=== PATIENT | female | born 1945 | race American Indian/Alaskan Native ===

== ENCOUNTER 2024-01-27 11:17 | Outpatient (RCR) | payer MEDICARE, MEDICAID, SELFPAY | END 2024-02-20 23:59 | disposition home or self-care (01) | LOC: SCTC 11:17 | PROVIDERS: PCP Nurse Practitioner Family; Referring Provider Nurse Practitioner Family; Visit Provider Nurse Practitioner Family | DX: D50.9 Iron deficiency anemia, unspecified (principal); K57.90 Diverticulosis of intestine, part unspecified, without perforation or abscess without bleeding; R13.10 Dysphagia, unspecified; Z88.8 Allergy status to other drugs, medicaments and biological substances; I25.10 Atherosclerotic heart disease of native coronary artery without angina pectoris; I10 Essential (primary) hypertension | CPT/HCPCS: 99212; G0463 ==

== ENCOUNTER → 2024-03-08 | Outpatient (CLI) | payer MEDICARE, MEDICAID, SELFPAY ==
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
== END | disposition home or self-care (01) ==
PROVIDERS: PCP Nurse Practitioner Family; Referring Provider Nurse Practitioner Family; Visit Provider Nurse Practitioner Family
DX: S69.91XA Unspecified injury of right wrist, hand and finger(s), initial encounter (principal); S09.90XA Unspecified injury of head, initial encounter; S49.92XA Unspecified injury of left shoulder and upper arm, initial encounter; S19.9XXA Unspecified injury of neck, initial encounter; V89.2XXA Person injured in unspecified motor-vehicle accident, traffic, initial encounter
CPT/HCPCS: 70450; 72050; 73030; 73110

== ENCOUNTER → 2024-03-29 | Outpatient (CLI) | payer MEDICARE, SELFPAY ==
[2024-03-29 17:41] LABS: Basophils % (Auto) 0 % (0-2.5); Eosinophils # (Auto) 0.1 Thou/mm3 (0.0-0.5); Eosinophils % (Auto) 1 % (0-10); Hematocrit 37.1 % (36.0-46.0); Hemoglobin 11.6 g/dL (12.0-16.0); Immature Granulocytes % (Auto) 0 % (0-0); Immature Granulocytes Auto 0.03 Thou/mm3 (0.00-0.00); Lymphocytes # (Auto) 2.4 Thou/mm3 (1.0-4.8); Lymphocytes % (Auto) 28 % (10-50); Mean Corpuscular HGB Conc 31.3 g/dl (31.0-37.0); Mean Corpuscular Hemoglobin 26.4 pg (25.0-35.0); Mean Corpuscular Volume 84 fL (80-100); Monocytes # (Auto) 0.4 Thou/mm3 (0.0-0.8); Monocytes % (Auto) 4 % (0-12); Neutrophils # (Auto) 5.5 Thou/mm3 (1.8-7.7); Neutrophils % (Auto) 66 % (37-80); Nucleated Red Blood Cell % 0 /100 WBC (0); Platelet Count 219 Thou/mm3 (140-440); RDW Standard Deviation 50.3 fL (36.4-46.3); Reticulocyte % (Auto) 1.4 % (0.5-1.5); Reticulocyte Absolute Auto 62.5 Biln/L (25.0-75.0); Reticulocyte Hgb Content 29.7 pg (28.0-35.0); White Blood Count 8.4 Thou/mm3 (3.6-11.0)
[2024-03-29 17:55] LABS: Alanine Aminotransferase 13 U/L (10-49); Albumin, Serum 4.6 gm/dL (3.4-4.8); Albumin/Globulin Ratio 1.8 (1.2-2.2); Alkaline Phosphatase 117 U/L (46-116); Anion Gap 8 (7-16); Aspartate Amino Transferase 12 U/L (0-34); BUN/Creatinine Ratio 21 Ratio (12-20); Bilirubin,Total 0.3 mg/dL (0.3-1.2); Blood Urea Nitrogen 21 mg/dL (9-23); Calcium 9.9 mg/dL (8.3-10.6); Calcium (Corrected) 9.9 mg/dL (8.5-10.1); Carbon Dioxide 26.8 mMol/L (20.0-31.0); Chloride 108 mMol/L (98-107); Globulin 2.5 gm/dL (2.3-3.5); Glucose 105 mg/dL (74-106); Osmolality,Calculated 287 (275-295); Potassium 4.9 mMol/L (3.4-5.1); Sodium 143 mMol/L (136-145); Total Protein 7.1 gm/dL (5.7-8.2); eGFR 58 See Note
[2024-03-29 17:59] LABS: Folate 17.43 ng/mL (>5.38); Vitamin B12 602 pg/mL (211-911)
[2024-03-30 02:28] LABS: Ferritin 21 ng/mL (7.3-270.7); Iron 44 mcg/dL (50-170); Percent Iron Saturation 13 % (20-55); Total Iron Binding Capacity 327 mcg/dL (250-425); Unsaturated Iron Binding 283 (225-295)
== END | disposition home or self-care (01) ==
PROVIDERS: PCP Nurse Practitioner Family; Referring Provider Nurse Practitioner Family; Visit Provider Nurse Practitioner Family
DX: D50.9 Iron deficiency anemia, unspecified (principal)
CPT/HCPCS: 36415; 80053; 82607; 82728; 82746; 83540; 83550; 85025; 85046

== ENCOUNTER 2024-04-04 13:33 | Outpatient (RCR) | payer MEDICARE, SELFPAY | END 2024-04-22 23:59 | disposition home or self-care (01) | LOC: SCTC 13:33 | PROVIDERS: PCP Nurse Practitioner Family; Referring Provider Nurse Practitioner Family; Visit Provider Nurse Practitioner Family | DX: D50.9 Iron deficiency anemia, unspecified (principal); K57.90 Diverticulosis of intestine, part unspecified, without perforation or abscess without bleeding; K21.9 Gastro-esophageal reflux disease without esophagitis; K59.09 Other constipation; R11.0 Nausea | CPT/HCPCS: 96365; 96375; 99212; J2919; J3490; J7050; Q0138; G0463 ==

== ENCOUNTER → 2024-05-03 | Outpatient (CLI) | payer MEDICARE, MEDICAID, SELFPAY ==
[2024-05-03 11:05] LABS: Basophils % (Auto) 0 % (0-2.5); Eosinophils # (Auto) 0.1 Thou/mm3 (0.0-0.5); Eosinophils % (Auto) 1 % (0-10); Hematocrit 34.8 % (36.0-46.0); Hemoglobin 11.1 g/dL (12.0-16.0); Immature Granulocytes % (Auto) 1 % (0-0); Immature Granulocytes Auto 0.09 Thou/mm3 (0.00-0.00); Lymphocytes # (Auto) 1.5 Thou/mm3 (1.0-4.8); Lymphocytes % (Auto) 15 % (10-50); Mean Corpuscular HGB Conc 31.9 g/dl (31.0-37.0); Mean Corpuscular Hemoglobin 26.6 pg (25.0-35.0); Mean Corpuscular Volume 84 fL (80-100); Monocytes # (Auto) 0.5 Thou/mm3 (0.0-0.8); Monocytes % (Auto) 5 % (0-12); Neutrophils # (Auto) 8.2 Thou/mm3 (1.8-7.7); Neutrophils % (Auto) 78 % (37-80); Nucleated Red Blood Cell % 0 /100 WBC (0); Platelet Count 232 Thou/mm3 (140-440); RDW Standard Deviation 48.5 fL (36.4-46.3); Red Blood Count 4.17 Miln/mm3 (4.00-5.20); White Blood Count 10.5 Thou/mm3 (3.6-11.0)
[2024-05-03 11:14] LABS: Glucose Estimated Average 229 mg/dL (80-131); Hemoglobin A1C 9.6 % Hgb (4.8-6.0)
[2024-05-03 11:16] LABS: Collection Type, Urine Clean Catch
[2024-05-03 11:27] LABS: Vitamin D 25 Hydroxy Total 11.6 ng/mL (7.3-40.2)
[2024-05-03 11:37] LABS: Alanine Aminotransferase 9 U/L (10-49); Albumin, Serum 4.1 gm/dL (3.4-4.8); Alkaline Phosphatase 125 U/L (46-116); Anion Gap 4 (7-16); Aspartate Amino Transferase < 8 U/L (0-34); BUN/Creatinine Ratio 16 Ratio (12-20); Bilirubin,Total 0.5 mg/dL (0.3-1.2); Blood Urea Nitrogen 18 mg/dL (9-23); Calcium 9.5 mg/dL (8.3-10.6); Calcium (Corrected) 9.5 mg/dL (8.5-10.1); Carbon Dioxide 28.5 mMol/L (20.0-31.0); Cardiac Risk Estimate 4.9 RATIO (3.7-5.6); Chloride 105 mMol/L (98-107); Cholesterol 151 mg/dL (132-200); Creatinine (Component) 1.1 mg/dL (0.6-1.3); Globulin 2.1 gm/dL (2.3-3.5); Glucose 301 mg/dL (74-106); HDL Cholesterol 31 mg/dL (40-60); LDL Cholesterol,Calculated 81 mg/dL (0-130); Osmolality,Calculated 286 (275-295); Potassium 4.7 mMol/L (3.4-5.1); Sodium 137 mMol/L (136-145); Thyroid Stimulating Hormone 0.96 uIU/mL (0.55-4.78); Total Protein 6.2 gm/dL (5.7-8.2); Triglycerides 193 mg/dL (30-150); eGFR 52 See Note
[2024-05-03 11:55] LABS: Creatinine MALB Rnd Ur 239 mg/dL (30-125); Microalbumin Creat Ratio 7 mg/gCrea (<30); Microalbumin, Random Urine 17 mg/L (0-300)
[2024-05-03 11:57] LABS: Bacteria,Urine Rare; Bilirubin,Urine Negative (Negative); Blood,Urine Trace (Negative); Clarity,Urine Clear (Clear/Hazy); Color,Urine Yellow (Lt Yel-Yel); Glucose, Urine Trace (Negative); Ketones,Urine Negative (Negative); Leukocyte Esterase,Urine Negative (Negative); Nitrite,Urine Negative (Negative); Protein,Urine Trace (Neg - Trace); RBC,Urine 1 /hpf (0-3); Specific Gravity,Urine 1.027 (1.001-1.035); Squamous Epithelial Cell,Urine 2 /hpf (0-5); Urobilinogen,Urine Negative mg/dL (0.0-1.0); WBC,Urine 1 /hpf (0-5)
== END | disposition home or self-care (01) ==
LOC: COPL 10:20
PROVIDERS: PCP Nurse Practitioner Family; Referring Provider Internal Medicine; Visit Provider Internal Medicine
DX: I12.9 Hypertensive chronic kidney disease with stage 1 through stage 4 chronic kidney disease, or unspecified chronic kidney disease (principal); E11.22 Type 2 diabetes mellitus with diabetic chronic kidney disease; N18.30 Chronic kidney disease, stage 3 unspecified
CPT/HCPCS: 36415; 80053; 80061; 81001; 82043; 82306; 82570; 83036; 84443; 85025

== ENCOUNTER → 2024-05-26 | Outpatient (CLI) | payer MEDICARE, MEDICAID, SELFPAY ==
--- NOTE | 2024-05-26 16:06 | XR_ITS ---
Examination: Abdomen AP single view Technique: AP portable supine abdomen, single view Exam date and time: May 26, 2024 1608 hrs. Indications: Abdominal pain beginning 2 months ago. Findings: Moderate stool throughout the colon No obstruction No free air Intact osseous structures Impression: Moderate stool throughout the colon
[2024-05-26 17:21] LABS: Collection Type, Urine Clean Catch
[2024-05-26 17:34] LABS: Basophils % (Auto) 0 % (0-2.5); Eosinophils # (Auto) 0.1 Thou/mm3 (0.0-0.5); Eosinophils % (Auto) 1 % (0-10); Hematocrit 31.6 % (36.0-46.0); Hemoglobin 10.1 g/dL (12.0-16.0); Immature Granulocytes % (Auto) 1 % (0-0); Immature Granulocytes Auto 0.04 Thou/mm3 (0.00-0.00); Lymphocytes # (Auto) 1.8 Thou/mm3 (1.0-4.8); Lymphocytes % (Auto) 23 % (10-50); Mean Corpuscular Hemoglobin 26.2 pg (25.0-35.0); Mean Corpuscular Volume 82 fL (80-100); Monocytes # (Auto) 0.4 Thou/mm3 (0.0-0.8); Monocytes % (Auto) 5 % (0-12); Neutrophils # (Auto) 5.8 Thou/mm3 (1.8-7.7); Neutrophils % (Auto) 71 % (37-80); Nucleated Red Blood Cell % 0 /100 WBC (0); Platelet Count 251 Thou/mm3 (140-440); RDW Standard Deviation 47.1 fL (36.4-46.3); Red Blood Count 3.85 Miln/mm3 (4.00-5.20); White Blood Count 8.1 Thou/mm3 (3.6-11.0)
[2024-05-26 17:47] LABS: Bilirubin,Urine Negative (Negative); Blood,Urine 1+ (Negative); Clarity,Urine Clear (Clear/Hazy); Color,Urine Lt-Yellow (Lt Yel-Yel); Glucose, Urine 4+ (Negative); Ketones,Urine Negative (Negative); Leukocyte Esterase,Urine Negative (Negative); Nitrite,Urine Negative (Negative); Protein,Urine Negative (Neg - Trace); RBC,Urine 8 /hpf (0-3); Specific Gravity,Urine 1.032 (1.001-1.035); Squamous Epithelial Cell,Urine 2 /hpf (0-5); Urobilinogen,Urine Negative mg/dL (0.0-1.0); WBC,Urine 1 /hpf (0-5)
[2024-05-26 18:31] LABS: Alanine Aminotransferase 10 U/L (10-49); Albumin, Serum 3.8 gm/dL (3.4-4.8); Albumin/Globulin Ratio 1.7 (1.2-2.2); Alkaline Phosphatase 129 U/L (46-116); Amylase 50 U/L (30-118); Anion Gap 7 (7-16); Aspartate Amino Transferase < 8 U/L (0-34); BUN/Creatinine Ratio 14 Ratio (12-20); Bilirubin,Total 0.3 mg/dL (0.3-1.2); Blood Urea Nitrogen 17 mg/dL (9-23); Calcium 9.3 mg/dL (8.3-10.6); Calcium (Corrected) 9.5 mg/dL (8.5-10.1); Carbon Dioxide 27.4 mMol/L (20.0-31.0); Chloride 103 mMol/L (98-107); Creatinine (Component) 1.2 mg/dL (0.6-1.3); Globulin 2.3 gm/dL (2.3-3.5); Glucose 398 mg/dL (74-106); Lipase 31 U/L (12-53); Osmolality,Calculated 292 (275-295); Potassium 4.4 mMol/L (3.4-5.1); Sodium 137 mMol/L (136-145); Total Protein 6.1 gm/dL (5.7-8.2); eGFR 47 See Note
== END | disposition home or self-care (01) ==
LOC: CDIM 16:24 → COPL 17:06
PROVIDERS: PCP Nurse Practitioner Family; Referring Provider Specialist; Visit Provider Specialist
DX: K59.00 Constipation, unspecified (principal)
CPT/HCPCS: 36415; 74018; 80053; 81001; 82150; 83690; 85025

== ENCOUNTER 2024-06-23 14:34 | Emergency (ER) | payer MEDICARE, MEDICAID, SELFPAY ==
[2024-06-23 14:36] VITALS: BMI 42.5
[2024-06-23 15:17] VITALS: BP 216/92; PULSE 88; RESP 18; TEMP 36.9; O2SAT 98
--- NOTE | 2024-06-23 15:25 | EKG_ITS ---
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
--- NOTE | 2024-06-23 15:25 | XR_ITS ---
Examination: CT orbits without intravenous contrast. 2-D sagittal reconstructions. 3-D reconstructions. Date and time of exam:June 23, 2024 2145 hours INDICATIONS: Dizziness and eye pain today CTDI: vol (mGy):49.4 DLP: (mGycm):895 Technique: Multiple axial images of maxillofacial region, 3.0 mm slice thickness. 2-D sagittal and coronal reconstructions. 3-D reconstructions. Low dose protocols were performed. One or more of the following dose reduction techniques were used; automated exposure control, adjustment of the mA and/or KV according to patient size, use of iterative reconstruction technique. Findings: The optic globes are intact Normal optic nerves No thickening of the ophthalmic musculature No opaque foreign bodies No retro-orbital mass or inflammation No pituitary enlargement Bony martinez of the orbits intact Chronic ethmoid sinusitis IMPRESSION: The optic globes are intact No retro-orbital mass lesion or inflammation Bony martinez of the orbits intact.
--- NOTE | 2024-06-23 15:25 | XR_ITS ---
Examination: CT brain head without contrast. 2-D sagittal coronal reconstructions Date and time of exam:June 23, 2024, 2145 hours Comparison March 08, 2024 INDICATIONS: Onset dizziness and eye pain today CTDI: vol (mGy):49.4 DLP: (mGycm):895 Technique: Multiple CT axial sections of the brain have been obtained, 5 mm slice thickness. Contrast has not been administered. 2-D sagittal, coronal reconstructions have been obtained Low dose protocols were performed. One or more of the following dose reduction techniques were used; automated exposure control, adjustment of the mA and/or KV according to patient size, use of iterative reconstruction technique. Findings: No significant ventricular enlargement. Intra-axial or extra-axial hemorrhage density is not seen. No mass effect or midline shift Basal cisterns are not remarkable. Fourth ventricle is midline. Cranial vault intact. Impression: Negative for acute hemorrhage, mass effect or midline shift Moderate ethmoid sinusitis
--- NOTE | 2024-06-23 15:26 | PD.EDRME ---
Rapid Medical Screening Exam E Arrival date/time: 06/23/24 14:34 78-year-old female presents the emergency department with complaints of right eye pain for 3 days. Worsening with movement. reOrts pain 8 out of 10. I have greeted and performed a focused initial assessment of this patient. Initial appropriate labs ordered at this time. A comprehensive ED assessment and evaluation of the patient and analysis of all test and completion of medical decision making process will be conducted by additional ED provider. Chief Complaint: Eye Problems Time Seen by Provider: 06/23/24 14:40 Vital signs: Vital Signs Temperature 98.5 F 06/23/24 15:17 Pulse Rate 88 06/23/24 15:17 Respiratory Rate 18 06/23/24 15:17 Blood Pressure 216/92 H 06/23/24 15:17 Pulse Oximetry (%) 98 06/23/24 15:17 Oxygen Delivery Method Room Air 06/23/24 15:17
[2024-06-23 15:47] LABS: Basophils % (Auto) 0 % (0-2.5); Eosinophils # (Auto) 0.1 Thou/mm3 (0.0-0.5); Eosinophils % (Auto) 1 % (0-10); Hematocrit 32.9 % (36.0-46.0); Hemoglobin 10.6 g/dL (12.0-16.0); Immature Granulocytes % (Auto) 0 % (0-0); Immature Granulocytes Auto 0.02 Thou/mm3 (0.00-0.00); Lymphocytes # (Auto) 1.4 Thou/mm3 (1.0-4.8); Lymphocytes % (Auto) 15 % (10-50); Mean Corpuscular HGB Conc 32.2 g/dl (31.0-37.0); Mean Corpuscular Hemoglobin 25.9 pg (25.0-35.0); Mean Corpuscular Volume 80 fL (80-100); Monocytes # (Auto) 0.3 Thou/mm3 (0.0-0.8); Monocytes % (Auto) 4 % (0-12); Neutrophils # (Auto) 7.4 Thou/mm3 (1.8-7.7); Neutrophils % (Auto) 80 % (37-80); Nucleated Red Blood Cell % 0 /100 WBC (0); Platelet Count 302 Thou/mm3 (140-440); RDW Standard Deviation 44.1 fL (36.4-46.3); Red Blood Count 4.09 Miln/mm3 (4.00-5.20); White Blood Count 9.2 Thou/mm3 (3.6-11.0)
[2024-06-23 16:12] LABS: Alanine Aminotransferase 8 U/L (10-49); Albumin, Serum 4.3 gm/dL (3.4-4.8); Albumin/Globulin Ratio 1.4 (1.2-2.2); Alkaline Phosphatase 119 U/L (46-116); Anion Gap 8 (7-16); Aspartate Amino Transferase < 10 U/L (0-34); BUN/Creatinine Ratio 20 Ratio (12-20); Bilirubin,Total 0.2 mg/dL (0.3-1.2); Blood Urea Nitrogen 22 mg/dL (9-23); C-Reactive Protein 4.4 mg/dL (0.0-0.9); Calcium 9.5 mg/dL (8.3-10.6); Calcium (Corrected) 9.5 mg/dL (8.5-10.1); Carbon Dioxide 26.9 mMol/L (20.0-31.0); Chloride 101 mMol/L (98-107); Creatinine (Component) 1.1 mg/dL (0.6-1.3); Estimated Creatinine Clearance 47.7 mL/min (>60); Glucose 210 mg/dL (74-106); Osmolality,Calculated 281 (275-295); Potassium 4.4 mMol/L (3.4-5.1); Sodium 136 mMol/L (136-145); Total Protein 7.3 gm/dL (5.7-8.2); Troponin I < 0.002 ng/mL (0.0-0.045); eGFR 52 See Note
[2024-06-23 18:48] LABS: Sed Rate (ESR) 76 mm/hr (0-30)
[2024-06-23 20:51] VITALS: BP 221/80; PULSE 62; RESP 18; TEMP 36.3; O2SAT 99
[2024-06-23 23:38] VITALS: BP 231/76; PULSE 89; RESP 18; TEMP 36.6; O2SAT 99
[2024-06-24 01:56] VITALS: BP 242/102; PULSE 65; RESP 17; TEMP 36.4; O2SAT 99
--- NOTE | 2024-06-24 03:26 | EDNOTE_ITS ---
ED Eye Problem RME/HPI General Chief complaint: Eye Problems Stated complaint: PAIN RIGHT EYE Time Seen by Provider: 06/23/24 14:40 Arrival date/time: 06/23/24 14:34 RME / HPI RME / HPI Narrative: 06/23/24 14:34 78-year-old female presents the emergency department with complaints of right eye pain for 3 days. Worsening with movement. reOrts pain 8 out of 10. I have greeted and performed a focused initial assessment of this patient. Initial appropriate labs ordered at this time. A comprehensive ED assessment and evaluation of the patient and analysis of all test and completion of medical decision making process will be conducted by additional ED provider. Dr. Rene?s Main ED Evaluation: 78yo female presents to the ED for a chief complaint of right eye pain x 4 days. Patient states her eye pain has been progressively getting worse over the last 2 days and was unable to tolerate the pain, so she came in for evaluation. She currently rates her pain a 6 out of 10 in severity. She denies any vision changes, headache, neck pain, dizziness, N/V, congestion, cough, fever, chills or any other associated symptoms. Patient is requesting Tylenol for the pain. Related Data Home Medications ?Medication ?Instructions ?Recorded ?Confirmed lisinopril 20 mg tablet 40 mg PO QDAY #0 tabs 04/02/23 clonidine HCl 0.1 mg tablet 0.1 mg PO DAILY ##90 02/2604/02/23 clopidogrel 75 mg tablet 75 mg PO DAILY 07/11/2103/23 insulin glargine 100 unit/mL (3 40 unit subcut BID 02/1304/02/23 mL) subcutaneous pen (Lantus Solostar U-100 Insulin) Previous Rx's ?Medication ?Instructions ?Recorded pantoprazole 40 mg tablet,delayed 40 mg PO QDAY #90 ta bs 04/02/23 release (Protonix) ondansetron 4 mg disintegrating 4 mg PO Q8H PRN nausea and 04/04/24 tablet vomiting #10 tabs amoxicillin 875 mg-potassium 1 tab PO BID Ethmoid sinu sitis 7 06/24/24 clavulanate 125 mg tablet days #14 tabs Allergies Allergy/AdvReac Type Severity Reaction Status Date / Time codeine Allergy Severe RASH Verified 06/23/24 14:36 diphenhydramine Allergy Severe ITCH AND Verified 06/23/24 14:36 RASH hydrocodone Allergy Severe Swelling Verified 06/23/24 14:36 of Lip/Tongue/Throat iodine Allergy Severe PURPLE RASH Verified 06/23/24 14:36 latex Allergy Unknown Rash Verified 06/23/24 14:36 lidocaine Allergy UNKNOWN Verified 06/23/24 14:36 prednisone Allergy Swelling Verified 06/23/24 14:36 of Lip/Tongue/Throat Review of Systems Review of Systems Systems Reviewed: All systems reviewed, normal except as documented Past Medical History Past Medical History NEUROLOGIC: Positive Head Trauma; Negative Neurological Disorders, Cerebrovascular Accident, Transient Ischemic Attacks (TIA), Dementia, Alzheimer's Disease, Parkinson's Disease, Brain Tumor, Meningitis, Seizures, Epilepsy, Multiple Sclerosis, Cerebral Palsy, Amyotrophic Lateral Sclerosis (ALS/Neema Gehrig's), Guillain-[place] Syndrome, Spina Bifida, Paralysis, Peripheral Neuropathy, Sheriff's Palsy, Subdural Hematoma, Migraine, Spinal Cord Injury or Traumatic Brain Injury CARDIAC: Positive Cardiac Disorders, Cardiac Arrhythmia, Coronary Artery Disease (stents x2 04/04/2021), Peripheral Vascular Disease, Hypercholesterolemia (no longer on medication), Edema, Hypertension and Varicose Veins; Negative Myocardial Infarction, Atrial Fibrillation, Angina, Heart Murmur, Atherosclerotic Heart Disease, Aneurysm, Congestive Heart Failure, Congenital Heart Disease, Valvular Heart Disease, Rheumatic Fever, Cardiomyopathy, Pericarditis, Cellulitis, Deep Vein Thrombosis or Hypotension RESPIRATORY: Negative Chronic Obstructive Pulmonary Disease (COPD), Asthma, Bronchitis, Emphysema, Pneumonia, Pulmonary Fibrosis, Cystic Fibrosis, Tuberculosis, Pulmonary Embolism, Pulmonary Edema or Sleep Apnea GASTROINTESTINAL: Positive Gastrointestinal Disorders, Pancreatitis, Hiatal Hernia, Gastroesophageal Reflux Disease and Obesity; Negative Hepatitis, Cirrhosis, Celiac Disease, Gall Bladder Disease, Gastrointestinal Bleed, Esophageal Varices, Landon's Esophagus, Colitis, Ulcerative Colitis, Diverticulitis, Diverticulosis, Ulcer, Colorectal Cancer, Irritable Bowel, Crohn's Disease, Obstructive Bowel or Hemorrhoids GENITOURINARY: Negative Genitourinary Disorders, Renal Disease, Kidney Stones, Polycystic Kidney Disease, Neurogenic Bladder, Inguinal Hernia, Dialysis, Prostate Cancer or Benign Prostatic Hyperplasia REPRODUCTIVE: Positive Breast Cancer (unclear type) and Previous Pregnancies (); Negative Endometriosis, Pelvic Inflammatory Disease, Testicular Cancer or Uterine Prolapse MUSCULOSKELETAL: Positive Musculoskeletal Disorders, Arthritis, Rheumatoid Arthritis, Osteoporosis, Carpal Tunnel Syndrome and Fractures; Negative Muscular Dystrophy, Myasthenia Gravis, Marfan's Syndrome, Bone Cancer, Degenerative Disk Disease, Gout, Scoliosis, Fibromyalgia, Degenerative Joint Disease, Osteomyelitis or Poliovirus ENT: Positive Cataracts and Head Trauma; Negative Glaucoma, Blind, Retinal Detachment, Macular Degeneration, Ear Infection, Deafness or Eye Prosthesis ENDOCRINE: Positive Endocrine Disorders and Diabetes Mellitus Type 2; Negative Diabetes Mellitus Type 1, Hypoglycemia, Turrell's Syndrome, Terrance's Disease, Hyperthyroidism, Hypothyroidism, Parathyroid Disease, Pituitary Disease, Systemic Lupus Erythematosus, Syndrome of Inappropriate Antidiuretic Hormone (SIADH), Adrenal Disease or Graves' Disease HEMATOLOGIC: Positive Anemia; Negative Blood Disorders, Leukemia, Hemophilia, Thalassemia, Sickle Cell Disease or Clotting Problems PSYCHO/SOCIAL: Positive Depression and Anxiety; Negative Psychiatric Problems, Schizophrenia, Recreational Drug Use, Bipolar Disorder, Behavior Problems, Self-Mutilation, Attention Deficit Disorder, Attention Deficit Hyperactivity Disorder, Depression, Post Traumatic Stress Disorder or Eating Disorder OTHER HISTORY: Positive Hospitalization, Autoimmune Disease (unknown, 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, unclear.), Chicken Pox, Measles, Mumps, Cancer and Breast Cancer (unclear type); Negative Down Syndrome, Autism, Developmental Delay, Shingles, Falls, Blood Transfusions, Anesthesia Reactions, Organ Transplant, Chemotherapy, Radiation Therapy, Hyperbaric Therapy, MRSA, VRSA, Vancomycin-Resistant Enterococci, Human Immunodeficiency Virus (HIV), Rubella (Mongolian Measles), Pertussis, Clostridium Difficile, Cervical Cancer, Colorectal Cancer, Lung Cancer, Ovarian Cancer, Prostate Cancer or Testicular Cancer Family History FAMILY HISTORY: Positive Family Cardiac Disorders (mother did, unspecified.), Family Gastrointestinal Problems, Family Cancer and Family Surgery; Negative Family Psychiatric Problems, Family Respiratory Disorders or Family Anesthesia Reaction Surgical History SURGICAL: Positive Cardiac Surgery, Coronary Stent, Cardiac Catheterization, Angiogram, Eye Surgery (cataracts), Oral Surgery (lip surgery), Tonsillectomy, Adenoidectomy, Abdominal Surgery (several scopes through umbilical area), Joint Replacement, Hysterectomy and Tubal Ligation; Negative Open Heart Surgery, Coronary Artery Bypass Graft, Valve Replacement, Vascular Surgery, Pacemaker, Auto Implanted Cardiovert Defib, Carotid Endarterectomy, Endocrine Surgery, Thyroidectomy, Ear Surgery, Tympanostomy Tube, Nose Surgery, Cochlear Implant, Corneal Transplant, Throat Surgery, Tracheostomy, Gastric Bypass Surgery, Gastrostomy, Bowel Surgery, Nephrectomy, Transurethral Resection, Amputation, Open Reduction Internal Fixation, Arthroscopy, Neurologic Surgery, Brain Shunt, Mastectomy, Lumpectomy, Section or Organ Transplant Social History SMOKING STATUS: Never smoker SUBSTANCE USE: does not use ED Exam Narrative Physical exam: GENERAL APPEARANCE: alert and oriented x 4, well-developed, well-nourished, no acute distress VITALS: All vitals were reviewed and the pulse ox is 99% on room air, which is normal according to my interpretation. HEENT: Normocephalic, atraumatic; pupils equal, round, reactive to light; EOMI; no scleral icterus, no proptosis, no lid swelling or erythema, no hordeolum or chalazion; no fluorescein uptake; right eye pressure is 20; mucous membranes pink, moist; oropharynx clear NECK: Supple LUNGS: CTABL; no wheezes, no rales, no rhonchi HEART: Regular rate, regular rhythm; normal S1, S2; no murmurs ABDOMEN: non distended; normal BS; soft, no tenderness, no guarding, no rebound; no masses, no organomegaly, no hernia BACK: no CVA tenderness EXTREMITIES: atraumatic; no edema NEUROLOGIC: awake; alert and oriented x4; cranial nerves II-XII grossly intact; no focal sensory or motor deficits PSYCHIATRIC: appropriate mood and affect SKIN: warm, dry, normal color; no rashes Course Quality Measures none Orders Category Date Time Status EKG (ED ONLY) *Do not use* NOW Care 06/23/24 15:25 Completed NPO STAT Care 06/23/24 15:25 Active Visual Acuity NOW Care 06/24/24 03:[address] head/brain wo con Stat Exams 06/23/24 15:[address] orbit BI wo con Stat Exams 06/23/24 15:25 Completed EKG (ED Only) Stat Exams 06/23/24 15:25 Draft CBC Stat Lab 06/23/24 15:30 Completed CRP [C-Reactive Protein] Stat Lab 06/23/24 15:30 Completed Comprehensive Metabolic Panel Stat Lab 06/23/24 15:30 Completed Sed Rate (ESR) Stat Lab 06/23/24 15:30 Completed Troponin I Stat Lab 06/23/24 15:30 Completed Acetaminophen Tab [Tylenol ES Tab] Med 06/24/24 03:44 Discontinued 1,000 mg PO X1 ONE Fluorescein Sodium [[id number]] Med 06/24/24 03:20 Discontinued 1 mg RIGHT EYE X1 ONE Ibuprofen Tab [Motrin Tab] Med 06/23/24 15:27 Discontinued 800 mg PO X1 ONE Proparacaine Op Airam 0.5% [Alcaine Op Airam 0.5%] Med 06/24/24 03:03 Discontinued See Dose Instructions RIGHT EYE X1 ONE cloNIDine HCL [Catapres] Med 06/24/24 03:13 Discontinued 0.1 mg PO X1 ONE Vital Signs Vital signs: Vital Signs Temperature 98.5 F 06/23/24 15:17 Pulse Rate 88 06/23/24 15:17 Respiratory Rate 18 06/23/24 15:17 Blood Pressure 216/92 H 06/23/24 15:17 Pulse Oximetry (%) 98 06/23/24 15:17 Oxygen Delivery Method Room Air 06/23/24 15:17 Eye MDM Narrative MDM Narrative:: Scribe Attestation: 06/24/24 Katlyn Snyder am scribing for and in the presence of Dr. Rene. Patient data External records reviewed:: [facility] previous records (Per chart review, patient has no relevant previous ED visits.) Clinical information provided by:: patient Social determinants that could affect healthcare access:: none Patient has the following chronic illnesses:: breast CA, CAD, HTN, HLD How is presenting disease/condition affected by chronic disease/condition?: exacerbated by Evaluation data The following diagnostics were reviewed and interpreted by me:: lab results and radiology exam(s) Lab and/or radiology exams considered but not ordered:: none Interpretation Summary: CBC is normal, ESR is 76, Glucose is 210, Troponin is normal, CRP is elevated at 4.4, according to my interpretation. EKG done at 1534, NSR, rate of 72, normal axis, no ectopy, no acute ischemia, according to my interpretation. [facility] Report Signed Patient: NIURKA DOMÍNGUEZ [facility]. Record#: [id number] Birthdate: 1945 Age/Sex: 78 / F Location: [facility] Attending Dr: Ordering Physician: Angel ([facility])[place] Date of Service: 06/23/24 Procedure(s): CT head/brain wo con Accession Number(s): [id number] cc: Tito Pham MD; ODILON ROSADO; Angel DouglasDAVID GRANT [facility]ENTERAyaanLatoniaBr[facility]~ Examination: CT brain head without contrast. 2-D sagittal coronal reconstructions Date and time of exam:June 23, 2024, 2145 hours Comparison March 08, 2024 INDICATIONS: Onset dizziness and eye pain today CTDI: vol (mGy):49.4 DLP: (mGycm):895 Technique: Multiple CT axial sections of the brain have been obtained, 5 mm slice thickness. Contrast has not been administered. 2-D sagittal, coronal reconstructions have been obtained Low dose protocols were performed. One or more of the following dose reduction techniques were used; automated exposure control, adjustment of the mA and/or KV according to patient size, use of iterative reconstruction technique. Findings: No significant ventricular enlargement. Intra-axial or extra-axial hemorrhage density is not seen. No mass effect or midline shift Basal cisterns are not remarkable. Fourth ventricle is midline. Cranial vault intact. Impression: Negative for acute hemorrhage, mass effect or midline shift Moderate ethmoid sinusitis Dictated By: Tito Pham MD Signed By: <Electronically signed by Tito Pham MD in [place]> 06/23/242207 [facility] Report Signed Patient: NIURKA DOMÍNGUEZ [facility]. Record#: [id number] Birthdate: 1945 Age/Sex: 78 / F Location: [facility] Attending Dr: Ordering Physician: Angel DouglasMER[facility] CENTERLatonia Capone [facility] Date of Service: 06/23/24 Procedure(s): CT orbit BI wo con Accession Number(s): [id number] cc: Tito Pham MD; ODILON ROSADO; Angel DouglasDAVID GRANT [facility]ENTERAyaanLatoniaBrigh[facility]~ Examination: CT orbits without intravenous contrast. 2-D sagittal reconstructions. 3-D reconstructions. Date and time of exam:June 23, 2024 2145 hours INDICATIONS: Dizziness and eye pain today CTDI: vol (mGy):49.4 DLP: (mGycm):895 Technique: Multiple axial images of maxillofacial region, 3.0 mm slice thickness. 2-D sagittal and coronal reconstructions. 3-D reconstructions. Low dose protocols were performed. One or more of the following dose reduction techniques were used; automated exposure control, adjustment of the mA and/or KV according to patient size, use of iterative reconstruction technique. Findings: The optic globes are intact Normal optic nerves No thickening of the ophthalmic musculature No opaque foreign bodies No retro-orbital mass or inflammation No pituitary enlargement Bony martinez of the orbits intact Chronic ethmoid sinusitis IMPRESSION: The optic globes are intact No retro-orbital mass lesion or inflammation Bony martinez of the orbits intact. Dictated By: Tito Pham MD Signed By: <Electronically signed by Tito Pham MD in OV> 06/23/24 6236 Medications / Prescriptions Medications or Prescriptions considered but not ordered:: none Medication administrations:: Medication Administration History Discontinued Medications Acetaminophen (Acetaminophen 500 Mg Tablet) 1,000 mg PO X1 ONE Stop: 06/24/24 03:45 Clonidine (Clonidine Hcl 0.1 Mg Tablet) 0.1 mg PO X1 ONE Stop: 06/24/24 03:14 Last Admin: 06/24/24 03:36 Dose: 0.1 mg Documented By: CVL Fluorescein Sodium (Fluorescein Sod 1 Mg Strp) 1 mg RIGHT EYE X1 ONE Stop: 06/24/24 03:21 Last Admin: 06/24/24 03:39 Dose: 1 mg Documented By: CVL Ibuprofen (Ibuprofen Tab 400 Mg Tablet) 800 mg PO X1 ONE Stop: 06/23/24 15:28 Last Admin: 06/23/24 19:41 Dose: Not Given Documented By: BD Non-Admin Reason: Patient Refused Proparacaine HCl (Proparacaine Op Airam 0.5% 15 Ml Btl) 0 drop RIGHT EYE X1 ONE Stop: 06/24/24 03:04 Last Admin: 06/24/24 03:39 Dose: 1 drop Documented By: CVL see above Consultations Consultation(s) initiated? (list below): No Diagnosis Eye Problem Differential Diagnosis: corneal abrasion, corneal ulcer and other (acute angle closure glaucoma) Most likely diagnosis given after review of the tests above:: see clinical impression below Admission Indicated Admission indicated?: not indicated Admission Request Was there a request for admission?: No Disposition Plan Disposition Plan: Discharge Discharge Attestation Discharge Attestation: The patient and all family members were given an opportunity to ask questions and understood the discharge instructions. Discharge instructions specifically effects, indications for sooner follow up or return to the emergency department, and the expected course of current diagnosis. Patient condition: Stable Discharge Plan Plan Patient Disposition: HOME (Self Care) Disposition Comment: Stable for discharge home Patient condition on transfer: Stable Prescriptions/Referrals Prescriptions/Med Rec: New amoxicillin-pot clavulanate 875-125 mg tablet 1 tab PO BID 7 Days Qty: 14 0RF No Action lisinopril 20 MG tablet 40 mg PO QDAY Qty: 0 clonidine HCl 0.1 MG tablet 0.1 mg PO DAILY Qty: 90 clopidogrel 75 mg tablet 75 mg PO DAILY Patient Comments: TAKE 1 TABLET BY MOUTH EVERY DAY ondansetron 4 mg tablet,disintegrating 4 mg PO Q8H PRN (Reason: nausea and vomiting) Qty: 10 0RF insulin glargine [Lantus Solostar U-100 Insulin] 100 unit/mL (3 mL) insulin pen 40 unit SUBCUT BID Patient Comments: INJECT 12 UNITS UNDER THE SKIN EVERY DAY AND 10 UNITS UNDER THE SKIN AT NIGHT pantoprazole [Protonix] 40 mg Tablet,Delayed Release (Dr/Ec) 40 mg PO QDAY Qty: 90 0RF Referrals: Odilon Rosado PA-C [Primary Care Provider] - In 1 week Problem List Clinical Impression: Hypertension, Acute ethmoidal sinusitis, Acute eye pain Patient/Caregiver Discharge Instructions Discharge Activity: activity as tolerated Education Materials: ED Hypertension, Established, ED Sinusitis (Antibiotic Treatment) Additional Instructions: Please follow-up with your primary care doctor within the next day or 2 and ask to be referred to an cyber security consultant. Tonight this CAT scan of your head showed that you have ethmoid sinusitis. The CAT scan of your eye socket showed no abnormalities at all. All of your blood work was normal here in the emergency department tonight. Please return to the ER if you have any worsening or any further medical problems and we will help you. Print Language: Korean Stand Alone Forms: [facility] Award Info., Patient Portal Info Letter
[2024-06-24 03:36] VITALS: BP 230/118; PULSE 76
[2024-06-24] MEDS: cloNIDine HCL 0.1 MG TABLET PO (03:36)
[2024-06-24] MEDS: FLUORESCEIN SOD 1 MG STRP RIGHT EYE (03:39)
[2024-06-24] MEDS: PROPARACAINE OP SOL 0.5% 15 ML BTL RIGHT EYE (03:39)
[2024-06-24] MEDS: ACETAMINOPHEN 500 MG TABLET 1000 MG PO (04:02)
[2024-06-24 04:53] VITALS: BP 210/92; PULSE 64; RESP 18; O2SAT 99
== END 2024-06-24 05:03 | disposition home or self-care (01) ==
PROVIDERS: Nurse Practitioner Primary Care; Emergency Provider Emergency Medicine; PCP Physician Assistant
DX: H57.11 Ocular pain, right eye (principal); J01.20 Acute ethmoidal sinusitis, unspecified; I10 Essential (primary) hypertension; R42 Dizziness and giddiness
CPT/HCPCS: 36415; 70450; 70480; 80053; 84484; 85025; 85652; 86140; 93005; 99284; A9270

== ENCOUNTER 2024-07-09 16:22 | Emergency (ER) | payer MEDICARE, MEDICAID, SELFPAY ==
[2024-07-09] VITALS (13 sets, daily range): BP systolic 165–230; BP diastolic 81–113; PULSE 68–106; RESP 16–22; TEMP 36.7–37.3; O2SAT 97–99; BMI 43.4
--- NOTE | 2024-07-09 17:19 | PD.EDALLER ---
ED Allergic Reaction RME/HPI General Chief complaint: Allergic Reaction Stated complaint: LIP/TONGUE SWOLLEN TODAY Time Seen by Provider: 07/09/24 16:56 Arrival date/time: 07/09/24 16:22 RME / HPI RME / HPI narrative: 78 year old female with a history of hypertension, diabetes, and anemia (previously requiring iron transfusions) presents to the ED for evaluation of tongue and lip swelling that began around 10:00 AM today and progressively worsened. She reports waking this morning with a marble-sized swelling on the left side of her tongue. After lying down for a nap, she noted increased swelling upon waking, now associated with a burning sensation on the left side. She recalls a similar episode of lip and facial swelling approximately one month ago, which was painless. At that time, she followed up with her PC, Dr. Chew, and had two medications changes. States she recalls one being Metformin due to concern for a possible allergic reaction. Today, the patient has not taken her Lisinopril. She denies fever, chills, difficulty swallowing or speaking, shortness of breath, or other associated symptoms. Related Data Home Medications ?Medication ?Instructions ?Recorded ?Confirmed lisinopril 20 mg tablet 40 mg PO QDAY #0 tabs 09/30/13 04/02/23 clonidine HCl 0.1 mg tablet 0.1 mg PO DAILY ##90 02/27/16 04/02/23 clopidogrel 75 mg tablet 75 mg PO DAILY 07/11/21 04/02/23 insulin glargine 100 unit/mL (3 40 unit subcut BID 04/02/23 04/02/23 mL) subcutaneous pen (Lantus Solostar U-100 Insulin) Previous Rx's ?Medication ?Instructions ?Recorded pantoprazole 40 mg tablet,delayed 40 mg PO QDAY #90 tabs 04/02/23 release (Protonix) ondansetron 4 mg disintegrating 4 mg PO Q8H PRN nausea and 04/04/24 tablet vomiting #10 tabs Allergies Allergy/AdvReac Type Severity Reaction Status Date / Time codeine Allergy Severe RASH Verified 07/09/24 16:25 diphenhydramine Allergy Severe ITCH AND Verified 07/09/24 16:25 RASH hydrocodone Allergy Severe Swelling Verified 07/09/24 16:25 of Lip/Tongue/Throat iodine Allergy Severe PURPLE RASH Verified 07/09/24 16:25 latex Allergy Unknown Rash Verified 07/09/24 16:25 lidocaine Allergy UNKNOWN Verified 07/09/24 16:25 prednisone Allergy Swelling Verified 07/09/24 16:25 of Lip/Tongue/Throat Review of Systems Review of Systems Narrative Review of Systems: Gen: No fever, no chills, no weight loss EYES: No discharge, no visual changes, no pain HEENT: +lip and tongue swelling. No ear pain, no congestion, no sore throat PULM: no shortness of breath, no cough, no congestion CV: No chest pain, no palpitations, no chest tightness GI: No nausea, no vomiting, no diarrhea, no pain, no constipation : No frequency, no urgency,? no dysuria Musc/skel: No joint pain, no back pain Skin: No rash, no ecchymosis, no lesions Neuro: No weakness, no headache Past Medical History Past Medical History NEUROLOGIC: Positive Head Trauma CARDIAC: Positive Cardiac Disorders, Cardiac Arrhythmia, Coronary Artery Disease, Peripheral Vascular Disease, Hypercholesterolemia, Edema, Hypertension and Varicose Veins GASTROINTESTINAL: Positive Gastrointestinal Disorders, Pancreatitis, Hiatal Hernia, Gastroesophageal Reflux Disease and Obesity REPRODUCTIVE: Positive Breast Cancer and Previous Pregnancies MUSCULOSKELETAL: Positive Musculoskeletal Disorders, Arthritis, Rheumatoid Arthritis, Osteoporosis, Carpal Tunnel Syndrome and Fractures ENT: Positive Cataracts and Head Trauma ENDOCRINE: Positive Endocrine Disorders and Diabetes Mellitus Type 2 HEMATOLOGIC: Positive Anemia PSYCHO/SOCIAL: Positive Depression and Anxiety OTHER HISTORY: Positive Hospitalization, Autoimmune Disease, Chicken Pox, Measles, Mumps, Cancer and Breast Cancer Family History FAMILY HISTORY: Positive Family Cardiac Disorders, Family Gastrointestinal Problems, Family Cancer and Family Surgery Surgical History SURGICAL: Positive Cardiac Surgery, Coronary Stent, Cardiac Catheterization, Angiogram, Eye Surgery, Oral Surgery, Tonsillectomy, Adenoidectomy, Abdominal Surgery, Joint Replacement, of Shoulder Sx (L ROTATOR CUFF SURGERY), Hysterectomy (COMPLETE) and Tubal Ligation Social History SMOKING STATUS: Never smoker SUBSTANCE USE: does not use ED Exam Narrative Physical exam: GENERAL APPEARANCE: AxOx4, no obvious distress, nontoxic appearing HEENT: NC, AT. MMM. Moderate angioedema to the left lateral tongue and some on the sublingual space and left lower lip. EOMI, clear conjunctiva, oropharynx clear. NECK: Supple without lymphadenopathy. No stiffness or restricted ROM. HEART: Normal rate and regular rhythm, normal S1/S1, no m/r/g LUNGS: CTAB, moving air well. No crackles or wheezes are heard. ABDOMEN: Soft, nontender, nondistended with good bowel sounds heard. BACK: No midline C/T/L spine pain or deformity, No CVAT, no obvious deformity. EXTREMITIES: Without cyanosis, clubbing or edema. MUSCULOSKELETAL: FROM of all major joints, no chest tenderness NEUROLOGICAL: Grossly nonfocal. Alert and oriented, moving all 4 extremities. CN not formally tested but appear grossly intact. Skin: Warm and dry without any rash. Course Course Course Narrative: 1800: Patient signed out to Dr. Broderick pending FFP transfusion, reassessment, and final disposition. Quality Measures none Orders Category Date Time Status Insert IV NOW Care 07/09/24 17:02 Active Transfuse,blood/blood products NOW Care 07/09/24 17:04 Active FFP [Fresh Frozen Plasma] Stat Lab 07/09/24 17:18 Results Type and Screen Stat Lab 07/09/24 17:18 Results EPINEPHrine Inj [Adrenalin Inj] Med 07/09/24 18:24 Once 0.3 mg SC X1 ONE Famotidine Inj [Pepcid Inj] Med 07/09/24 18:23 Once 20 mg IVP X1 ONE Famotidine Inj [Pepcid Inj] Med 07/09/24 18:23 Once 20 mg IVP X1 ONE Sodium Chloride 0.9% 1000 ml [Ns] 1,000 ml Med 07/09/24 18:22 Active IV 999 mls/hr cloNIDine HCL [Catapres] Med 07/09/24 18:27 Once 0.3 mg PO X1 ONE hydrALAZINE INJ [Apresoline Inj] Med 07/09/24 17:03 Discontinued 10 mg IV X1 ONE Reevaluation(s) Reevaluation #1: Patient aware of plan to transfuse FFP. Time: 17:10 Vital Signs Vital signs: Vital Signs Temperature 99 F 07/09/24 16:30 Pulse Rate 106 H 07/09/24 16:30 Respiratory Rate 22 H 07/09/24 16:30 Blood Pressure 201/97 H 07/09/24 16:30 Pulse Oximetry (%) 97 07/09/24 16:30 Oxygen Delivery Method Room Air 07/09/24 16:30 Pulse ox is 97% on room air which is adequate. Allergic Reaction MDM Narrative MDM Narrative:: I, Poppy Reynoso, am scribing for and in the presence of Dr. Mauro. Patient data External records reviewed:: [facility] previous records (I reviewed ED visit on 06/24/2024 and 04/04/2024 ) Clinical information provided by:: patient Social determinants that could affect healthcare access:: none Patient has the following chronic illnesses:: hypertension, diabetes, and anemia (previously requiring iron transfusions) How is presenting disease/condition affected by chronic disease/condition?: exacerbated by Evaluation data The following diagnostics were reviewed and interpreted by me:: other (specify) (No diagnostics ordered ) Lab and/or radiology exams considered but not ordered:: None Interpretation Summary: As noted above Medications / Prescriptions Medications or Prescriptions considered but not ordered:: None Medication administrations:: Medication Administration History Clonidine (Clonidine Hcl 0.1 Mg Tablet) 0.3 mg PO X1 ONE Stop: 07/09/24 18:28 Epinephrine HCl (Epinephrine Inj 1 Mg/Ml Amp) 0.3 mg SC X1 ONE Stop: 07/09/24 18:25 Famotidine (Famotidine Inj 10 Mg/Ml Vial 2 Ml) 20 mg IVP X1 ONE Stop: 07/09/24 18:24 Famotidine (Famotidine Inj 10 Mg/Ml Vial 2 Ml) 20 mg IVP X1 ONE Stop: 07/09/24 18:24 Sodium Chloride (Ns) 1,000 mls @ 999 mls/hr IV .Q1H1M ONE Stop: 07/09/24 19:22 Discontinued Medications Hydralazine HCl (Hydralazine Inj 20 Mg/Ml Vial) 10 mg IV X1 ONE Stop: 07/09/24 17:04 Last Admin: 07/09/24 17:20 Dose: 10 mg Documented By: KM See above Consultations Consultation(s) initiated? (list below): No Diagnosis Differential Diagnosis allergic reaction: anaphylaxis, allergic reaction, angioedema and adverse reaction to drug Most likely diagnosis given after review of the tests above:: Angioedema Admission Indicated Admission indicated?: not indicated Explain why admission is indicated or not indicated:: Patient signed out pending FFP, reassessment, and final disposition. Admission Request Was there a request for admission?: No Disposition Plan Disposition Plan: other (specify) (Signed out to Dr. Broderick ) Discharge Plan Prescriptions/Referrals Prescriptions/Med Rec: No Action lisinopril 20 MG tablet 40 mg PO QDAY Qty: 0 clonidine HCl 0.1 MG tablet 0.1 mg PO DAILY Qty: 90 clopidogrel 75 mg tablet 75 mg PO DAILY Patient Comments: TAKE 1 TABLET BY MOUTH EVERY DAY ondansetron 4 mg tablet,disintegrating 4 mg PO Q8H PRN (Reason: nausea and vomiting) Qty: 10 0RF insulin glargine [Lantus Solostar U-100 Insulin] 100 unit/mL (3 mL) insulin pen 40 unit SUBCUT BID Patient Comments: INJECT 12 UNITS UNDER THE SKIN EVERY DAY AND 10 UNITS UNDER THE SKIN AT NIGHT pantoprazole [Protonix] 40 mg Tablet,Delayed Release (Dr/Ec) 40 mg PO QDAY Qty: 90 0RF [facility]: [facility] PA-C [Primary Care Provider] - In 1 week Problem List Clinical Impression: BRIAN inhibitor-aggravated angioedema Patient/Caregiver Discharge Instructions Education Materials: ED Angioedema Additional Instructions: Stop taking your lisinopril. Print Language: Khmer
[2024-07-09] MEDS: hydrALAZINE INJ 20 MG/ML VIAL 10 MG IV (17:20)
--- NOTE | 2024-07-09 18:06 | PD.EDADDENDU ---
Emergency Room Addendum <Winsome Motley - Last Filed: 07/10/24 04:21> Addendum Narrative: I took over the care from previous shift physician at 6 PM on 07/09/2024. See previous notes for complete H & P and ED course. I reviewed all diagnostic test results. My interpretation of the EKG is My interpretation of the chest x-ray is NAD Blood tests and urine tests Diagnoses include: Treatment here included Zofran, Sodium Chloride (Ns), Metoprolol Tartrate My interpretation of the EKG is: Sinus rhythm (87 bpm) with nonspecific ST-T changes. Manan Broderick MD Based on my best medical judgment, made decision no further evaluation or treatment indicated at this time. Patient understands and agrees to the discharge instructions customized and printed, see below. Manan Broderick MD <Manan Broderick MD - Last Filed: 07/10/24 21:50> Addendum Narrative: I took over the care from previous shift physician, Dr Mauro, at 6 PM on 07/09/2024. See previous notes for complete H & P and ED course. I reviewed all diagnostic test results. My interpretation of the EKG is: Sinus rhythm (87 bpm) with nonspecific ST-T changes. Manan Broderick MD My interpretation of the chest x-ray is NAD Blood tests unremarkable. Diagnoses include: Severe angioedema due to lisinopril. Patient has allergic reactions to Benadryl and prednisone. Due to patient's allergic reaction to Benadryl and prednisone, we had difficulty improving her angioedema. We needed IV fluid, Solu-Medrol, epinephrine, famotidine, dexamethasone, and FFP. Patient declined to try Benadryl. For high BP, we needed metoprolol and clonidine. Significant improvement noted. Due to severe angioedema and history of Benadryl and prednisone allergic reaction, recommended admission for further treatment. Patient declined. Discussed potential risks, including worsening and sudden . We still couldn't convince her mind. Based on my best medical judgment, made decision no further evaluation or treatment indicated at this time. Patient understands and agrees to the discharge instructions customized and printed, see below. Discharge Instructions from Dr. Broderick printed for you: 1. You are treated for severe allergic reaction to lisinopril. 2. Avoid lisinopril and all BRIAN inhibitors in the future. 3. Take dexamethasone as prescribed to keep the allergic reaction from worsening. 4. EpiPen as needed. 5. To remove lisinopril and metabolites out of your system, increase oral fluid and maintain clear urine. If dark or yellow, increase oral fluid. 6. For your BP, take metoprolol 50 mg and clonidine 0.1 mg (2 pills) 2X daily, until seen by your doctor. 7. See your doctor on 07/11/24 for recheck and further care. 8. Seek immediate medical care with worsening or with any concerns. Manan Broderick MD
--- NOTE | 2024-07-09 18:27 | XR_ITS ---
Examination: AP chest single view Technique one AP portable upright chest single view Exam date and time: July 09, 2024 1848 hrs. Indications: Tongue and lip swelling beginning 10:00 AM this morning getting worse Findings: Mild prominence of ventricle Minor atelectasis left lower lung zone No aspiration pneumonia No pulmonary edema Impression: No aspiration pneumonia
[2024-07-09 18:39] LABS: Basophils % (Auto) 0 % (0-2.5); Eosinophils % (Auto) 0 % (0-10); Hematocrit 33.2 % (36.0-46.0); Hemoglobin 10.4 g/dL (12.0-16.0); Immature Granulocytes % (Auto) 0 % (0-0); Immature Granulocytes Auto 0.03 Thou/mm3 (0.00-0.00); Lymphocytes # (Auto) 1.5 Thou/mm3 (1.0-4.8); Lymphocytes % (Auto) 14 % (10-50); Mean Corpuscular HGB Conc 31.3 g/dl (31.0-37.0); Mean Corpuscular Hemoglobin 25.3 pg (25.0-35.0); Mean Corpuscular Volume 81 fL (80-100); Monocytes # (Auto) 0.4 Thou/mm3 (0.0-0.8); Monocytes % (Auto) 4 % (0-12); Neutrophils # (Auto) 8.7 Thou/mm3 (1.8-7.7); Neutrophils % (Auto) 81 % (37-80); Nucleated Red Blood Cell % 0 /100 WBC (0); Platelet Count 319 Thou/mm3 (140-440); RDW Standard Deviation 45.8 fL (36.4-46.3); Red Blood Count 4.11 Miln/mm3 (4.00-5.20); White Blood Count 10.7 Thou/mm3 (3.6-11.0)
[2024-07-09 18:47] LABS: Partial Thromboplastin Time 29.5 Seconds (22.0-36.0); Prothrombin Time 10.7 Seconds (9.0-12.2)
[2024-07-09] MEDS: cloNIDine HCL 0.1 MG TABLET 0.3 MG PO (18:55)
[2024-07-09] MEDS: MethylPREDNISolone SOD SUCC 62.5 MG/ML 2ML VIAL 125 MG IVP ×2 (18:59→22:27)
[2024-07-09] MEDS: SODIUM CHLORIDE 0.9% 1000 ML 1,000 ML 999 ML IV ×2 (19:00→22:27)
[2024-07-09] MEDS: FAMOTIDINE INJ 10 MG/ML VIAL 2 ML 20 MG IVP ×2 (19:00)
[2024-07-09] MEDS: EPINEPHrine INJ 1 MG/ML AMP 0.3 MG SC (19:08)
[2024-07-09 19:32] LABS: Alanine Aminotransferase 7 U/L (10-49); Albumin, Serum 4.3 gm/dL (3.4-4.8); Albumin/Globulin Ratio 1.4 (1.2-2.2); Alkaline Phosphatase 115 U/L (46-116); Anion Gap 7 (7-16); Aspartate Amino Transferase 10 U/L (0-34); BUN/Creatinine Ratio 22 Ratio (12-20); Bilirubin,Total 0.3 mg/dL (0.3-1.2); Blood Urea Nitrogen 26 mg/dL (9-23); Calcium 9.7 mg/dL (8.3-10.6); Calcium (Corrected) 9.7 mg/dL (8.5-10.1); Carbon Dioxide 27.3 mMol/L (20.0-31.0); Chloride 106 mMol/L (98-107); Creatinine (Component) 1.2 mg/dL (0.6-1.3); Estimated Creatinine Clearance 44.3 mL/min (>60); Glucose 174 mg/dL (74-106); Magnesium 1.9 mg/dL (1.6-2.6); Osmolality,Calculated 288 (275-295); Potassium 4.6 mMol/L (3.4-5.1); Sodium 140 mMol/L (136-145); Total Protein 7.3 gm/dL (5.7-8.2); eGFR 47 See Note
[2024-07-09] MEDS: LORazepam 2 MG/ML VIAL 1.5 MG IVP (20:06)
[2024-07-09] MEDS: ONDANSETRON INJ 2 MG/ML INJ 2 ML 4 MG IV (20:06)
[2024-07-09] MEDS: METOPROLOL TARTRATE INJ 1 MG/ML AMP 5 ML 2.5 MG IVP (20:10)
[2024-07-09] MEDS: METOPROLOL TARTRATE 25 MG TABLET 100 MG PO (20:16)
--- NOTE | 2024-07-09 20:22 | EKG_ITS ---
[facility] Test Date: 2024-07-09 Pat Name: NIURKA DOMÍNGUEZ Department: Room: - Gender: Female [employer]: : [id number] Requested By: Manan Larsen Order Number: [id number] Reading MD: Manan Larsen Measurements Intervals [place] Rate: 87 P: 27 WI: 161 QRS: -89 QRSD: 105 T: 8 QT: 389 QTc: 469 Interpretive Statements SINUS RHYTHM INDETERMINATE AXIS LEFT ANTERIOR FASCICULAR BLOCK [QRS AXIS <= -45, QR IN I, RS IN II] POSSIBLE ANTERIOR MYOCARDIAL INFARCTION , PROBABLY OLD [30 ms Q WAVE IN V3/V4, OR R < 0.2 mV IN V4] Compared to ECG 06/23/2024 15:34:56 Indeterminate axis now present Left anterior fascicular block now present Myocardial infarct finding now present /store/S0/[id number]/ecg/[id number].pdf
[2024-07-09 21:47] LABS: Troponin I < 0.020 ng/mL (0.0-0.045)
[2024-07-10] VITALS (10 sets, daily range): BP systolic 172–194; BP diastolic 87–94; PULSE 65–70; RESP 17–18; TEMP 36.4–37.1; O2SAT 97–98
[2024-07-10] MEDS: DEXAMETHASONE SOD PHOS INJ 10 MG/ML VIAL PO (03:51)
[2024-07-10] MEDS: MethylPREDNISolone SOD SUCC 62.5 MG/ML 2ML VIAL 125 MG IVP (04:17)
== END 2024-07-10 05:14 | disposition home or self-care (01) ==
PROVIDERS: Emergency Provider Emergency Medicine; PCP Nurse Practitioner Family
DX: T78.3XXA Angioneurotic edema, initial encounter (principal); I44.4 Left anterior fascicular block; I10 Essential (primary) hypertension
CPT/HCPCS: 36415; 36430; 71045; 80053; 83735; 84484; 85025; 85610; 85730; 86850; 86900; 86901; 86927; 93005; 96361; 96374; 96375; 96376; 99285; J0171; J0360; J1100; J2060; J2405; J2919; J3490; J7030; P9060; A9270